=== PATIENT | male | born 1980 | race Hispanic/Latino ===

== ENCOUNTER 2019-05-01 00:06 | Emergency (ER) | payer SELFPAY ==
[2019-05-01] MEDS ORDERED: Lidocaine 1% w/Epinephrine 1:100K 20 ML VIAL ONE (01:08)
--- NOTE | 2019-05-01 08:13 | CT ---
PRELIMINARY REPORT/[facility]/EMERGENCY AFTER HOURS PROCEDURE: EXAM: CT Head Without Contrast EXAM DATE/TIME: 05/01/2019 12:46 AM CLINICAL HISTORY: 38 years old, male; Injury or trauma; Fall; Initial encounter; Blunt trauma (contusions or hematomas) ; Consciousness not specified; Patient HX: Previous on pacs. . . Er 12. . . Per witnesses PT fell str aight back from standing. PT denies loc, pain TECHNIQUE: Imaging protocol: Computed tomography of the head without contrast. COMPARISON: No relevant prior studies available. FINDINGS: Brain: Normal. No hemorrhage. Unremarkable white matter. No mass effect. Ventricles: Normal. No ventriculomegaly. Bones/joints: Unremarkable. No acute fracture. Sinuses: Visualized sinuses are unremarkable. No fluid levels. Mastoid air cells: Visualized mastoid air cells are well aerated. Soft tissues: Unremarkable. IMPRESSION: No acute intracranial abnormality. Thank you for allowing us to participate in the care of your patient. Dictated and Authenticated by: Benjamín Reyes MD 05/01/2019 12:55 AM Central Time ([place] & [place]) FINAL REPORT CT HEAD: Date: 05/01/19 FINDINGS/IMPRESSION: No acute abnormality identified. I am in agreement with the preliminary report issued by [facility]. POS: OFF
--- NOTE | 2019-05-01 08:16 | CT ---
PRELIMINARY REPORT/[facility]/EMERGENCY AFTER HOURS PROCEDURE: EXAM: CT Cervical Spine Without Contrast EXAM DATE/TIME: 05/01/2019 12:46 AM CLINICAL HISTORY: 38 years old, male; Injury or trauma; Fall; Initial encounter; Blunt trauma; Patient HX: Previous on pacs. . . Er 12. . . Per witnesses PT fell straight back from standing. PT denies loc, pain TECHNIQUE: Imaging protocol: Computed tomography images of the cervical spine without contrast. COMPARISON: No relevant prior studies available. FINDINGS: Vertebrae: No acute fracture. Normal alignment. Discs/Spinal canal/Neural foramina: No spinal stenosis. No neural foraminal narrowing. Soft tissues: Unremarkable. Lungs: Lung apices are normal. IMPRESSION: No acute findings. Thank you for allowing us to participate in the care of your patient. Dictated and Authenticated by: Benjamín Reyes MD 05/01/2019 12:57 AM Central Time ([place] & [place]) FINAL REPORT CT CERVICAL SPINE: Date: 05/01/19 Axial tomograms obtained through cervical spine with multiplanar reconstruction. FINDINGS/IMPRESSION: No evidence of fracture. No acute findings. I am in agreement with the preliminary report issued by [facility]. POS: OFF
== END 2019-05-01 03:40 | disposition home or self-care (01) ==
LOC: ERS 00:06
DX: S01.01XA Laceration without foreign body of scalp, initial encounter (principal); F17.210 Nicotine dependence, cigarettes, uncomplicated; W17.89XA Other fall from one level to another, initial encounter
CPT/HCPCS: 70450; 72125; J2001